=== PATIENT | male | born 1945 | race Caucasian/White ===

== ENCOUNTER 2020-02-19 08:49 | Emergency (ER) | payer MEDICARE, OTHER, SELFPAY ==
[~2020-02-19] VITALS: Ht 175.3 cm; Wt 120.7 kg
[2020-02-19 08:52] VITALS: BP 117/62
[2020-02-19] MEDS ORDERED: CARBAMIDE PEROXIDE EAR DROPS 6.5%, 15ML RIGHT EAR ONE (09:30)
[2020-02-19] MEDS ORDERED: CARBAMIDE PEROXIDE EAR DROPS 6.5%, 15ML ONE (09:35)
--- NOTE | 2020-02-19 11:03 | NUR ---
Patient/Caregiver given discharge instructions and they have confirmed that they understand the instructions. Patient ambulatory with steady gait.
== END 2020-02-19 11:06 | disposition home or self-care (01) ==
LOC: ED 09:40
DX: H61.21 Impacted cerumen, right ear (principal); E11.9 Type 2 diabetes mellitus without complications
CPT/HCPCS: 69210; 99284